=== PATIENT | female | born 1965 | race Caucasian/White ===

== ENCOUNTER 2016-04-27 15:40 | Emergency (ER) | payer OTHER ==
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
--- NOTE | 2016-04-28 08:22 | ED MAR SUMMARY ---
..... Medication Administration Record [facility] [address] [place] [address] Patient: KAYE PAYTON Visit ID: [id number] 51y, F Weight: 65.3 kg Height/Length: 63 in BMI: 25.5 ALLERGIES: No Known Drug Allergy Given 16:29 04/27/2016 Kyle Yee R.N. Medication Administered: TDAP [IM], Dose: 0.5 mL IM. Medication Ordered: Tdap IM 0.5 mL (NOW, per protocol).
--- NOTE | 2016-04-28 08:22 | ED MAR SUMMARY ---
..... Medication Administration Record [facility] [address] [place] [address] Patient: KAYE PAYTON Visit ID: [id number] 51y, F Weight: 65.3 kg Height/Length: 63 in BMI: 25.5 ALLERGIES: No Known Drug Allergy Given 16:29 04/27/2016 Kyle Yee R.N. Medication Administered: TDAP [IM], Dose: 0.5 mL IM. Medication Ordered: Tdap IM 0.5 mL (NOW, per protocol).
--- NOTE | 2016-04-28 08:22 | ED ORDER SUMMARY ---
..... Patient: KAYE PAYTON OrderSheet [facility] VisitID: [id number] [address] [place] [address] 51y, F Registration Date/Time: 04/27/2016 ORDER SHEET Weight: 65.3 kg (stated) Allergies: No Known Drug Allergy GENERAL ORDERS: MEDICATION ORDERS: Tdap IM 0.5 mL (NOW, per protocol) (16:17 04/27/2016 Miguel Miller) (16:30 Roger Das) IV FLUIDS: ORDER SHEET NOTES: [Electronically signed by Telma Kwon P.A.-C (16:20 04/27/2016)] [Electronically signed by Kyle Yee R.N. (08:22 04/28/2016)] [Electronically locked/signed by Kyle Yee R.N. (08:04/28/2016)]
--- NOTE | 2016-04-28 08:22 | ED MED RECONCILIATION SUMMARY ---
Patient: KAYE PAYTON Medication Reconciliation Report [facility] VisitID: [id number] [place] [address] 51y, F Registration Date/Time: 04/27/2016 Weight: 65.3 kg Height/Length: 63 in. BMI: 25.5 ALLERGIES: No Known Drug Allergy The patient's Home Medications are listed below: NONE. The source(s) of the original Home Medication information: Not obtained. The following Medications were given to the patient in the Emergency Department: TDAP [IM] IM 0.5 mL, administered: 04/27/2016 4:29:00 PM The following Medications were prescribed to the patient: Motrin IB 200 mg (available over the counter): take 4 orally every 8 hours for 5 days, as needed for pain -- NeloleTelma alexander, P.A.-C Soma 350 mg: Take 1 orally every 6 hours as needed for muscle spasm. Dispense twenty (20). No refills. Substitution is permissible. -- Doyle, Telma, P.A.-C
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
--- NOTE | 2016-04-28 08:22 | ED MED RECONCILIATION SUMMARY ---
Patient: KAYE PAYTON Medication Reconciliation Report [facility] VisitID: [id number] [address] [address] 51y, F Registration Date/Time: 04/27/2016 Weight: 65.3 kg Height/Length: 63 in. BMI: 25.5 ALLERGIES: No Known Drug Allergy The patient's Home Medications are listed below: NONE. The source(s) of the original Home Medication information: Not obtained. The following Medications were given to the patient in the Emergency Department: TDAP [IM] IM 0.5 mL, administered: 04/27/2016 4:29:00 PM The following Medications were prescribed to the patient: Motrin IB 200 mg (available over the counter): take 4 orally every 8 hours for 5 days, as needed for pain -- NeloleTelma alexander, P.A.-C Soma 350 mg: Take 1 orally every 6 hours as needed for muscle spasm. Dispense twenty (20). No refills. Substitution is permissible. -- Doyle, Telma, P.A.-C
--- NOTE | 2016-04-28 08:22 | ED ORDER SUMMARY ---
..... Patient: KAYE PAYTON OrderSheet [facility] VisitID: [id number] [place] [address] 51y, F Registration Date/Time: 04/27/2016 ORDER SHEET Weight: 65.3 kg (stated) Allergies: No Known Drug Allergy GENERAL ORDERS: MEDICATION ORDERS: Tdap IM 0.5 mL (NOW, per protocol) (16:17 04/27/2016 Miguel Miller) (16:30 Roger Das) IV FLUIDS: ORDER SHEET NOTES: [Electronically signed by Telma Kwon P.A.-C (16:20 04/27/2016)] [Electronically signed by Kyle Yee R.N. (08:22 04/28/2016)] [Electronically locked/signed by Kyle Yee R.N. (08:04/28/2016)]
== END 2016-04-27 16:48 | disposition home or self-care (01) ==
LOC: ED SRH 15:40
DX: S50.812A Abrasion of left forearm, initial encounter (principal); V43.52XA Car driver injured in collision with other type car in traffic accident, initial encounter; Y93.89 Activity, other specified; Y92.9 Unspecified place or not applicable; Y99.9 Unspecified external cause status